=== PATIENT | female | born 1955 | race Caucasian/White ===

== ENCOUNTER 2020-06-22 12:20 | Emergency (ER) | payer OTHER ==
[2020-06-22 12:37] VITALS: BP 135/60; PULSE 79; TEMP 97; BMI 23.9
[2020-06-22 14:14] LABS: URINE APPEARANCE CLEAR; URINE BILIRUBIN 2+ (NEGATIVE); URINE COLOR DK YELLOW; URINE GLUCOSE (UA) NEGATIVE (NEGATIVE); URINE KETONE NEGATIVE (NEGATIVE); URINE LEUK ESTERASE NEGATIVE (NEGATIVE); URINE NITRITE NEGATIVE (NEGATIVE); URINE PROTEIN TRACE (NEGATIVE)
[2020-06-22] MEDS ORDERED: LACTULOSE 20 GM/30 ML UDC (FOR ORAL USE ONLY) PO ONE (15:04)
[2020-06-22] MEDS ORDERED: LACTULOSE 20 GM/30 ML UDC (FOR ORAL USE ONLY) ONE (15:06)
== END 2020-06-22 15:10 | disposition home or self-care (01) ==
LOC: JERFT 12:20
DX: J30.2 Other seasonal allergic rhinitis (principal); R10.30 Lower abdominal pain, unspecified; K59.00 Constipation, unspecified
CPT/HCPCS: 74018-TC-FY; 81003; 87086; 99284-25